=== PATIENT | female | born 2000 ===

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

== ENCOUNTER 2018-04-12 17:56 | Emergency (ER) | payer SELFPAY ==
[2018-04-12 17:56] VITALS: BMI 32.4
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
[2018-04-12 18:34] VITALS: BP 142/83; PULSE 95; RESP 16; TEMP 98.6
[2018-04-12 18:35] VITALS: O2SAT 100
== END 2018-04-12 18:35 | disposition left against medical advice (07) ==
LOC: ED 17:56
DX: Z02.89 Encounter for other administrative examinations (principal); R10.2 Pelvic and perineal pain